=== PATIENT | male | born 1995 | race Caucasian/White ===

== ENCOUNTER 2018-11-24 10:56 | Emergency (ER) | payer SELFPAY ==
[~2018-11-24] VITALS: Ht 182.9 cm; Wt 80.0 kg
[2018-11-24] MEDS ORDERED: MUPIROCIN CALCIUM 2% 22 GM OINTMENT TP ONE (11:45)
[2018-11-24] MEDS ORDERED: SULFAMETHOX/TRIMETH DS 800-160 MG/TABLET PO ONE (11:45)
[2018-11-24] MEDS ORDERED: IBUPROFEN 800 MG TABLET PO ONE (12:00)
[2018-11-24 12:10] VITALS: BP 116/60
[2018-11-26] MEDS ORDERED: IBUP-2071 PO ×2 (13:52)
== END 2018-11-24 12:16 | disposition home or self-care (01) ==
LOC: EMS 10:59
DX: L03.114 Cellulitis of left upper limb (principal); L02.414 Cutaneous abscess of left upper limb
CPT/HCPCS: 10060; 87070